=== PATIENT | male | born 1960 | race Caucasian/White ===

== ENCOUNTER 2020-11-12 11:59 | Outpatient (CLI) | payer OTHER, SELFPAY ==
--- NOTE | ~2020-11-12 | XR_ITS ---
EXAMINATION: XR chest 2V DATE: 11/12/2020 12:24 INDICATION: Respiratory tract congestion and cough, COVID 19 TECHNIQUE: Frontal and lateral views of the chest are obtained COMPARISON: None available FINDINGS: The lungs are free of acute opacities. There is no pleural effusion or pneumothorax. The ca rdiomediastinal silhouette is normal. There is moderate thoracic spondylosis. Spine stimulator leads project in the central spinal canal over the lower thoracic spine. IMPRESSION: 1. No acute cardiopulmonary abnormality. Reviewed, dictated and finalized at location [facility]. 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
== END 2020-11-12 12:00 | disposition home or self-care (01) ==
PROVIDERS: PCP Internal Medicine; Visit Provider Internal Medicine
DX: R05 Cough (principal)
CPT/HCPCS: 71046

== ENCOUNTER 2022-07-20 10:35 | Emergency (ER) | payer OTHER, SELFPAY ==
--- NOTE | ~2022-07-20 | CT_ITS ---
EXAMINATION: CT abdomen pelvis w con DATE: 07/20/2022 12:34 INDICATION: Abdominal pain, dysuria TECHNIQUE: Computed tomography (CT) of the abdomen and pelvis was performed with 100 CC Omnipaque 350 intravenous contrast. Automated exposure control and iterative reconstruction technique were employe d. Exam dose: 768.28 mGy-cm total exam DLP. COMPARISON: 04/07/2012 CT abdomen pelvis FINDINGS: The lung bases are clear of infiltrate or consolidation. Normal heart size. No pericardial or pleural effusion. 8.7 x 13.2 mm calcified stone in the dependent aspect of the gallbladder. No gallbladder wall thicken ing or pericholecystic fluid or fat stranding. No hepatic space-occupying mass lesion. Focal fat infi ltration adjacent to the fissure for the ligamentum teres. Borderline splenic size. No pancreatic mass lesion or calcification. No pancreatic or bile duct dilatation. Normal morphology of the adrenal glands. No renal mass lesion or urinary tract calculus or hydroureteronephrosis. There is prostate enlargemen t and moderate diffuse thickening of the urinary bladder wall likely secondary to the prostate hypert rophy. Small fat-containing left inguinal hernia. There is atherosclerotic calcification but normal caliber of the abdominal aorta. No intraperitoneal or retroperitoneal or pelvic mass lesion or adenopathy or ascites. There are sutures of the colon near the junction of the sigmoid and descending colon. There are numer ous colonic diverticula with involvement of left and right colon. No CT evidence of diverticulitis. Normal appendix. No bowel obstruction or intraperitoneal free air. Posterior thoracic spinal neurotransmitter leads L a generator device in the right lower back. No suspicious osteolytic or osteoblastic lesions. Diffuse idiopathic skeletal hyperostosis of the thoracic spine. Transitional lumbosacral vertebra. IMPRESSION: Prostate enlargement, generalized bladder wall thickening likely due to prostate hypertr ophy Borderline splenic size Cholelithiasis Diverticulosis of colon; no CT evidence of diverticulitis Normal appendix Small fat-containing umbilical hernia Reviewed, dictated and finalized at [facility]. Reviewed, dictated and finalized at [facility]. IMPRESSION: Prostate enlargement, generalized bladder wall thickening likely d ue to prostate hypertrophy Borderline splenic size Cholelithiasis Diverticulosis of colon; no CT evidence of diverticulitis Normal appendix Small fat-containing umbilical hernia
[2022-07-20 10:41] VITALS: BP 143/68; PULSE 93; RESP 16; TEMP 36.8; O2SAT 100
[2022-07-20 10:59] LABS: Appearance Urine Clear (Clear); Bilirubin Urine 1+ (Negative); Color Urine Yellow (Yellow); Glucose Urine UA 2+ mg/dL (Negative); Ketones Urine Negative (Negative); Leukocyte Esterase Ur Negative LEU/UL (Negative); Nitrate Urine Negative (Negative); Protein Urine Negative (Negative); Specific Grav Ur >= 1.030 (1.001-1.035); Urobilinogen Urine 0.2 mg/dL (<2.0); pH Urine 5.5 (5.0-9.0)
[2022-07-20 11:02] LABS: Mucus Urine Rare /lpf; RBC Urine 0-2 /hpf (0-2)
[2022-07-20 11:05] LABS: Add Urine Microscopic? YES; Blood Urine Trace-Intact (Negative)
[2022-07-20 11:20] LABS: Basophils Percent Auto 0.5 % (0.2-1.2); Eosinophils Absolute Auto 0.1 K/mm3 (0-0.3); Eosinophils Percent Auto 1.1 % (0-4.4); Hematocrit 39.3 % (42.0-52.0); Hemoglobin 12.9 g/dL (14.0-18.0); Immature Granulocyte Absolute 0.06 K/mm3 (0.00-0.031); Immature Granulocyte Percent A 0.9 % (0-0.5); Lymphocytes Absolute Auto 0.69 K/mm3 (0.9-3.2); Lymphocytes Percent Auto 10.6 % (18.3-44.2); Mean Corpuscular HGB Conc 32.8 g/dl (32-36); Mean Corpuscular Hemoglobin 29.5 pg (26-34); Mean Corpuscular Volume 89.7 fl (80-100); Mean Platelet Volume 9.9 fl (7.4-10.4); Monocytes Absolute Auto 0.4 K/mm3 (0.1-0.6); Monocytes Percent Auto 5.7 % (2.6-8.5); Neutrophils Absolute Auto 5.3 K/mm3 (1.3-6.7); Neutrophils Percent Auto 81.2 % (45.5-73.1); Platelet Count Result 125 k/mm3 (150-375); Red Blood Count 4.38 M/mm3 (4.6-6.20); Red Cell Distribution Width 13.2 % (11.5-14.5); White Blood Count 6.5 K/mm3 (4.5-10.0)
[2022-07-20 11:30] LABS: Alanine Aminotransferase 55 U/L (6-50); Albumin Level 3.9 g/dL (3.5-5.1); Alkaline Phosphatase 73 U/L (38-126); Anion Gap 12 mmol/L (8-16); Aspartate Amino Transferase 39 U/L (17-59); Bilirubin,Total 0.5 mg/dL (0.2-1.3); Blood Urea Nitrogen 19 mg/dL (9-20); Calcium 9.2 mg/dL (8.4-10.2); Carbon Dioxide 25 mmol/L (22-30); Chloride 104 mmol/L (98-107); Estimated CRCL calculation 65 ml/min; Estimated Glomerular Filt Rate > 60; Glucose 299 mg/dL (65-110); Lipase 105 U/L (23-300); Potassium 4.6 mmol/L (3.4-5.0); Sodium 141 mmol/L (137-145)
[2022-07-20] MEDS: SODIUM CHLORIDE 0.9% IV 1,000 ML 999 ML IV CONT (12:17)
[2022-07-20] MEDS: ONDANSETRON INJ 4 MG/2 ML VIAL IV PUSH (12:18)
[2022-07-20] MEDS: MORPHINE SULFATE (*CRX) 4 MG/ML INJ IV PUSH (12:18)
--- NOTE | 2022-07-20 12:20 | ED.GENADULT ---
HPI - General Adult General Chief complaint: Urogenital-Male Stated complaint: unable to urinate Time Seen by Provider: 07/20/22 12:01 Source: RN notes reviewed History of Present Illness HPI narrative: Patient presents emergency room from home for abdominal pain. Patient states has been having lower abdominal pain for the past 10 days the pain is located bilateral lower quadrant worse in the left described as aching in nature. States that it is associated with dysuria and he saw his PCP a week ago was placed on antibiotics for possible UTI but continues to have the symptoms. He denies any fevers or chills nausea vomiting diarrhea or any other symptoms states the pain will radiate around to the back at times Related Data Allergies Allergy/AdvReac Type Severity Reaction Status Date / Time No Known Allergies Allergy Verified 12/20/17 07:46 Review of Systems Review of Systems: Gen.: Denies fevers or chills ENT: Denies congestion Respiratory: Denies shortness of breath or cough CV: Denies chest pain or palpitations GI: Reports lower abdominal pain. Denies nausea, emesis or diarrhea see HPI Musculoskeletal: Denies back pain or muscle pain Neuro: Denies numbness, tingling, weakness or focal weakness Skin: Denies rash Except as documented, all other systems reviewed and negative [facility] Past Medical History Medical History (Updated 07/20/22 @ 13:27 by Hans Langston DO) Diabetes mellitus Hypertension Social History Social History (Updated 07/20/22 @ 12:21 by Hans Langston DO) Smoking status: Never smoker Exam Narrative: APPEARANCE: No acute distress, nontoxic, resting in bed HEENT: Normocephalic, atraumatic, OMM RESPIRATORY: No respiratory distress, clear to auscultation bilaterally with no rhonchi wheezing or rales CARDIOVASCULAR: RRR s murmur ABDOMINAL: Soft nondistended tender palpation right lower quadrant left lower quadrant no tenderness right upper quadrant left upper quadrant no rebound or guarding MUSCULOSKELETAl: Moves all extremities. No clubbing, cyanosis or edema. NEURO: Awake and alert. Following commands, speech normal, no focal deficits SKIN:: Warm, dry. Normal Color PSYCHIATRIC: Normal affect/mood Course Course Emergency Course: Reviewed old records patient with chronically low platelets Discussed with on-call physician for Dr. Mason agrees with plan for Flomax with referral to urology Patient states that they are feeling much better at this time. States abdominal pain has resolved. Repeat abdominal exam shows the patient's abdomen to be soft and nontender. Discussed with patient results of workup and diagnosis. Discussed need for follow-up with primary care physician, reasons to return to the emergency department in proper use of medication. Patient understands and agrees to current treatment plan Vital Signs Vital signs: Vital Signs Temperature 98.2 F 07/20/22 10:41 Pulse Rate 93 07/20/22 10:41 Respiratory Rate 16 07/20/22 10:41 Blood Pressure 143/68 H 07/20/22 10:41 Pulse Oximetry 100 07/20/22 10:41 Oxygen Delivery Room Air 07/20/22 10:41 Temperature 98.2 F 07/20/22 10:41 Pulse Rate 78 07/20/22 13:18 Respiratory Rate 18 07/20/22 13:18 Blood Pressure 132/72 07/20/22 13:18 Pulse Oximetry 99 07/20/22 13:18 Oxygen Delivery Room Air 07/20/22 10:41 Medical Decision Making MDM Narrative Medical decision making narrative: Patient presents for lower abdominal pain and difficulty urinating for the past several weeks. Was seen by his PCP last week put on Bactrim still continue have symptoms. On exam today white count was within normal limits patient's platelet count is low but is chronically low on review of old records UA shows no signs of infection a CT of the abdomen pelvis is negative no kidney stones no diverticulitis does show a thickened prostate and hypertrophy of the bladder and suspect patient has been having outlet obstruction w
[2022-07-20 13:18] VITALS: BP 132/72; PULSE 78; RESP 18; O2SAT 99
[2022-07-20] MEDS: TAMSULOSIN HCL 0.4 MG CAPSULE PO (13:29)
== END 2022-07-20 13:49 | disposition home or self-care (01) ==
PROVIDERS: Emergency Medicine; Emergency Provider Emergency Medicine; PCP Internal Medicine
DX: N40.0 Benign prostatic hyperplasia without lower urinary tract symptoms (principal); R10.32 Left lower quadrant pain; R10.31 Right lower quadrant pain; E11.9 Type 2 diabetes mellitus without complications; I10 Essential (primary) hypertension; K80.20 Calculus of gallbladder without cholecystitis without obstruction; K57.90 Diverticulosis of intestine, part unspecified, without perforation or abscess without bleeding; K42.9 Umbilical hernia without obstruction or gangrene
CPT/HCPCS: 36415; 74177; 80053; 81001; 83690; 85025; 96361; 96374; 96375; 99284; A9270; J2270; J2405; J7030; Q9967

== ENCOUNTER 2025-05-21 00:52 | Day surgery (SDC) | payer OTHER, SELFPAY ==
--- NOTE | 2025-05-10 11:40 | PC.NURSE ---
Addendum entered by Bee Santos RN 05/10/25 12:23: pt called back, states he would not have much time to talk but quickly went over med hx, printed off last scanned note from dr sanchez. pt states had not rec'd any prep instructions. instructions emailed and hard copy mailed. instructed pt to call back if any questions. voiced understanding. Original Note: attempted to call pt regarding his upcoming colonoscopy on May 21, 2025. pt states he works 12 hours 6 days a week with no break and he did not have time to talk. said nothing has changed and we should have all that. tried to explain last record was 2021, call was disconnected.
[2025-05-10 11:59] VITALS: BMI 25.7
--- OUTSIDE RECORDS SUMMARY | 2025-05-21 00:54 | XMS_ITS | Data Portability ---
Author Organization [place] [employer], Main Office Address [address] [place] [address] Assessment No assessment recorded. Plan of Treatment Reminders Order Date Submit Date Provider Last Modified By Organization Details Last Modified Time Details Appointments None recorded . Lab HbA1c (hemoglo bin A1c), blood 025 01/04/20 25 [facility] - Outpatient Lab, [address] [place], [address], 5 09:47:50 PSA, serum or plasma 025 01/04/20 25 [email or web address] [facility] Outpatient Lab, [address] [place], [address], 5 09:47:50 lipid panel, serum 025 01/04/20 25 [email or web address] [facility] Outpatient Lab, [address] [place], [address], 5 09:47:49 CMP, serum or plasma 025 01/04/20 25 [email or web address] [facility] Outpatient Lab, [address] [place], [address], 5 09:47:50 TSH, serum or plasma 025 01/04/20 25 [facility] Outpatient Lab, [address] [place], [address], 5 09:47:50 CBC w/ auto diff 025 01/04/[email or web address] [place] [address] Outpatient Lab, [address] [place], [address], 5 09:47:50 T4, free, serum 025 01/04/[id number] [place] [address] Outpatient Lab, [address] [place], [address], 5 09:47:50 HbA1c (hemoglo bin A1c), blood 024 05/31/[id number] [place] [address] Outpatient Lab, [address] [place], [address], 4 12:41:47 microalb umin, urine 024 05/31/[email or web address] [place] [address] Outpatient Lab, [address] [place], [address], 4 12:41:47 lipid panel, serum 024 05/31/[email or web address] [place] [address] Outpatient Lab, [address] [place], [address], 4 12:41:46 CMP, serum or plasma 024 05/31/[email or web address] [place] [address] Outpatient Lab, [address] [place], [address], 4 12:41:47 TSH, serum or plasma 024 05/31/[id number] [place] [address] Outpatient Lab, [address] [place], [address], 4 12:41:47 T4, free, serum 024 05/31/[id number] [place] [address] Outpatient Lab, [address] [place], [address], 4 12:41:47 CBC w/ auto diff 024 05/31/[id number] [place] [address] Outpatient Lab, [address] [place], [address], 4 12:41:46 HbA1c (hemoglo bin A1c), blood 024 11/11/[id number] Outpatient Lab, [address] [place], [address], 4 16:52:12 microalb umin/cre atinine, mass ratio, urine 024 11/11/[id number] Outpatient Lab, [address] [place], [address], 4 16:52:13 PSA, serum or plasma 023 05/13/[id number] Outpatient Lab, [address] [place], [address], 3 15:32:37 CBC w/ auto diff 023 05/13/[id number] Outpatient Lab, [address] [place], [address], 3 15:32:36 CMP, serum or plasma 023 05/13/[id number] Outpatient Lab, [address] [place], [address], 3 15:32:36 lipid panel, serum 023 05/13/[id number] Outpatient Lab, [address] [place], [address], 3 15:32:36 TSH, serum or plasma 023 05/13/[id number] Outpatient Lab, [address] [place], [address], 3 15:32:36 T4, free, serum 023 05/13/[id number] Outpatient Lab, [address] [place], [address], 3 15:32:37 Referral None recorded . Procedures None recorded . Surgeries None recorded . Imaging None recorded . Medication Orders None recorded . Patient TargetsNo targets recorded. Patient Instructions Encounter Date Encounter Id Patient Instructions Last Modified By Organization Details Last Modified Time 05/13/2023 [id number] Follow-up hypertension-hyperl ipidemia - type 2 diabetes. Will check blood work consisting of CBC, CMP, lipid, thyroid and PSA. Health overdue on a colonoscopy. Will check on this as well. Continue on current Rx and follow-up in six months [email or web address] Not available 05/13/2023 12:00:01 11/11/2023 [id number] Follow-up hypertension -hyperlipidemia- type 2 diabetes -testicular hypofunction all clinically stable. No interval complaints of any new problems. Will check blood work including a hemoglobin A1c and microalbumin. Recent blood work looked fine as far as cholesterol etc.. Does need a follow-up colonoscopy. Will continue on current Rx and follow-up in six months. Portions of the record may have been created with voice recognition software. Occasional wrong-word or [id number] substitutions may have occurred due to the inherent limitations of voice recognition software. Read the chart carefully and recognize, using context, where substitutions have occurred. Needs a colonoscopy follow-up [email or web address] Not available 11/11/2023 10:37:12 05/31/2024 [id number] Follow-up hypertension, hyperlipidemia, type 2 diabetes, testicular hypofunction hypogonadotropic, diverticulitis. Check blood work consisting of CBC, CMP, lipid, thyroid, hemoglobin A1c and microalbumin. Is in need of a follow-up colonoscopy. Continue on other medications the same way in follow-up in six months. Additional Orders and/or Directives: 1. Needs a follow-up colonoscopy Next Appointment: 6 Months Approximate Date: 11/27/2024 Portions of the record may have been created with voice recognition software. Occasional wrong-word or [id number] substitutions may have occurred due to the inherent limitations of voice recognition software. Read the chart carefully and recognize, using context, where substitutions have occurred. [email or web address] Not available 05/31/2024 10:35:51 01/03/2025 [id number] Follow-up essent ial hypertension, hyperlipidemia, testicular hypofunction type 2 diabetes. Check blood work consisting of CBC, CMP, lipid, thyroid, PSA and does need a follow-up colonoscopy. Is having problems with injections in the right buttocks. Does have a spinal cord stimulator in this area. Recommend that he see one of the pain management physician consider the possibility of removing this or moving it to another location. Clinically stable otherwise. Additional Orders - Directives - Recommendations 1. Needs a follow-up colonoscopy 2. Set up with pain management. The patient has a spinal cord stimulator in which he probably does not need any longer. Follow Up: 6 Months Approximate Date: 07/02/2025 Portions of record are template driven. When necessary additional context will be provided. Additionally some portions have been created with voice recognition software. Occasional wrong-word or [id number]-[id number] substitutions may have occurred due to the inherent limitations of voice recognition software. Read the chart carefully and recognize, using context, where substitutions may have occurred. Created: Khai Mason M.D. 01.03.2025 03:49 PM [email or web address] Not available 01/03/2025 16:49:55 Reason for Referral None Reported. Results Created Date Observation Date Name Description Value Unit Range Abnormal Flag Note LastModifiedBy Organization Detail LastModifiedTime 07/21/2007/22/2023 LIPID PANEL , STAND YANELI cholesterol, total 131 mg/dL <200 normal Not Available [employer] [address] [address] [place], [address], 07/22/2023 06:57:45 07/21/2007/22/2023 LIPID PANEL , STAND YANELI HDL cholesterol 40 mg/dL > or = 40 normal Not Available [employer] [facility] [address] [place], [address], 07/22/2023 06:57:45 07/21/20 23 07/22/2023 LIPID PANEL , STAND YANELI triglyceride s 71 mg/dL <150 normal Not Available [employer] [address] [address] [place], [address], 07/22/2023 06:57:45 07/21/2007/22/2023 LIPID PANEL , STAND YANELI LDL-choleste rol 76 mg/dL _(sergio c) normal Refer ence range : <100 Harley able range <100 mg/dL for prima ry preve ntion ; <70 mg/dL for patie nts with CHD or diabe tic patie nts with > or = 2 CHD risk facto rs. LDL-C is now calcu lated using the [facility] kins calcu chonfigueroa n, which is a valid ated novel metho d provi sarbjit tracy r accur acy than the [employer] equat ion in the estim ation of LDL-C . Vijaya n SS et al. JOAQUÍN. 2013; 310(1 9): 2061- 2068 (http ://ed ucati on.[employer]. [employer]/f aq/FA Q164) Not Available [employer] [facility] [address] [place], [address], 07/22/2023 06:57:45 07/21/20 23 07/22/2023 LIPID PANEL , STAND YANELI chol/HDLC ratio 3.3 (calc ) <5.0 normal Not Available [employer] [facility] [address] [place], [address], 07/22/2023 06:57:45 07/21/20 23 07/22/2023 LIPID PANEL , STAND YANELI non HDL cholesterol 91 mg/dL _(sergio c) <130 normal For patie nts with diabe angel plus 1 major ASCVD risk facto r, treat ing to a non-H DL-C goal of <100 mg/dL (LDL- C of <70 mg/dL ) is consi dered a thera peuti c optio n. Not Available [employer] [facility] [address] [place], [address], 07/22/2023 06:57:45 07/21/20 23 07/22/2023 COMPR EHENS SUN METAB OLIC PANEL glucose 249 mg/dL 65-99 high Fasti ng refer ence inter saqib For someo ne witho ut known diabe angel, a gluco se value >125 mg/dL indic ates that they may have diabe angel and this shoul d be confi rmed with a follo w-up test. Not Available [address], [address], 07/22/2023 06:57:46 07/21/20 23 07/22/2023 COMPR EHENS SUN METAB OLIC PANEL urea nitrogen (BUN) 11 mg/dL 7-25 normal Not Available [facility] [address], [address], 07/22/2023 06:57:46 07/21/20 23 07/22/2023 COMPR EHENS SUN METAB OLIC PANEL creatinine 1.16 mg/dL 0.70-1 .35 normal Not Available [address], [address], 07/22/2023 06:57:46 07/21/20 23 07/22/2023 COMPR EHENS SUN METAB OLIC PANEL eGFR 71 mL/mi n/1.7 3m2 > or = 60 normal Not Available [address], [address], 07/22/2023 06:57:46 07/21/20 23 07/22/2023 COMPR EHENS SUN METAB OLIC PANEL BUN/creatini ne ratio SEE NOTE: (calc ) 6-22 Not Repor harriett: BUN and Creat inine are withi n refer ence range . Not Available [address], [address], 07/22/2023 06:57:46 07/21/20 23 07/22/2023 COMPR EHENS SUN METAB OLIC PANEL sodium 137 mmol/ L 135-14 6 normal Not Available [address], [address], 07/22/2023 06:57:46 07/21/20 23 07/22/2023 COMPR EHENS SUN METAB OLIC PANEL potassium 4.3 mmol/ L 3.5-5. 3 normal Not Available [address], [address], 07/22/2023 06:57:46 07/21/20 23 07/22/2023 COMPR EHENS SUN METAB OLIC PANEL chloride 100 mmol/ L 98-110 normal Not Available [address], [address], 07/22/2023 06:57:46 07/21/20 23 07/22/2023 COMPR EHENS SUN METAB OLIC PANEL carbon dioxide 30 mmol/ L 20-32 normal Not Available [address], [address], 07/22/2023 06:57:46 07/21/20 23 07/22/2023 COMPR EHENS SUN METAB OLIC PANEL calcium 9.2 mg/dL 8.6-10 .3 normal Not Available [address], [address], 07/22/2023 06:57:46 07/21/20 23 07/22/2023 COMPR EHENS SUN METAB OLIC PANEL protein, total 6.6 g/dL 6.1-8. 1 normal Not Available [address], [address], 07/22/2023 06:57:46 07/21/20 23 07/22/2023 COMPR EHENS SUN METAB OLIC PANEL albumin 4.4 g/dL 3.6-5. 1 normal Not Available [address], [address], 07/22/2023 06:57:46 07/21/20 23 07/22/2023 COMPR EHENS SUN METAB OLIC PANEL globulin 2.2 g/dL_ (calc ) 1.9-3. 7 normal Not Available [address], [address], 07/22/2023 06:57:46 07/21/20 23 07/22/2023 COMPR EHENS SUN METAB OLIC PANEL albumin/glob ulin ratio 2.0 (calc ) 1.0-2. 5 normal Not Available [address], [address], 07/22/2023 06:57:46 07/21/20 23 07/22/2023 COMPR EHENS SUN METAB OLIC PANEL bilirubin, total 1.0 mg/dL 0.2-1. 2 normal Not Available [address], [address], 07/22/2023 06:57:46 07/21/20 23 07/22/2023 COMPR EHENS SUN METAB OLIC PANEL alkaline phosphatase 51 U/L 35-144 normal Not Available [address], [address], 07/22/2023 06:57:46 07/21/2007/22/2023 COMPR EHENS SUN METAB OLIC PANEL AST 13 U/L 10-35 normal Not Available [address], [address], 07/22/2023 06:57:46 07/21/20 23 07/22/2023 COMPR EHENS SUN METAB OLIC PANEL ALT 17 U/L 9-46 normal Not Available [address], [address], 07/22/2023 06:57:46 07/21/20 23 07/22/2023 CBC (INCL UDES DIFF/ PLT) white blood cell count 5.0 thous and/u L 3.8-10 .8 normal Not Available [address], [address], 07/22/2023 06:57:47 07/21/20 23 07/22/2023 CBC (INCL UDES DIFF/ PLT) red blood cell count 5.36 kendall on/uL 4.20-5 .80 normal Not Available [address], [address], 07/22/2023 06:57:47 07/21/20 23 07/22/2023 CBC (INCL UDES DIFF/ PLT) hemoglobin 15.1 g/dL 13.2-1 7.1 normal Not Available [address], [address], 07/22/2023 06:57:47 07/21/20 23 07/22/2023 CBC (INCL UDES DIFF/ PLT) hematocrit 45.9 % 38.5-5 0.0 normal Not Available [address], [address], 07/22/2023 06:57:47 07/21/20 23 07/22/2023 CBC (INCL UDES DIFF/ PLT) MCV 85.6 fL 80.0-1 00.0 normal Not Available [address], [address], 07/22/2023 06:57:47 07/21/20 23 07/22/2023 CBC (INCL UDES DIFF/ PLT) MCH 28.2 pg 27.0-3 3.0 normal Not Available [address], [address], 07/22/2023 06:57:47 07/21/20 23 07/22/2023 CBC (INCL UDES DIFF/ PLT) MCHC 32.9 g/dL 32.0-3 6.0 normal Not Available [address], [address], 07/22/2023 06:57:47 07/21/20 23 07/22/2023 CBC (INCL UDES DIFF/ PLT) RDW 14.5 % 11.0-1 5.0 normal Not Available [employer] [address], [address], 07/22/2023 06:57:47 07/21/20 23 07/22/2023 CBC (INCL UDES DIFF/ PLT) absolute neutrophils 4055 cells /uL 1500-7 800 normal Not Available [address], [address], 07/22/2023 06:57:47 07/21/20 23 07/22/2023 CBC (INCL UDES DIFF/ PLT) absolute lymphocytes 585 cells /uL 850-39 00 low Not Available [address], [address], 07/22/2023 06:57:47 07/21/20 23 07/22/2023 CBC (INCL UDES DIFF/ PLT) absolute monocytes 270 cells /uL 200-95 0 normal Not Available [address], [address], 07/22/2023 06:57:47 07/21/20 23 07/22/2023 CBC (INCL UDES DIFF/ PLT) absolute eosinophils 60 cells /uL 15-500 normal Not Available [address], [address], 07/22/2023 06:57:47 07/21/20 23 07/22/2023 CBC (INCL UDES DIFF/ PLT) absolute basophils 30 cells /uL 0-200 normal Not Available [address], [address], 07/22/2023 06:57:47 07/21/20 23 07/22/2023 CBC (INCL UDES DIFF/ PLT) neutrophils 81.1 % normal Not Available [address], [address], 07/22/2023 06:57:47 07/21/20 23 07/22/2023 CBC (INCL UDES DIFF/ PLT) lymphocytes 11.7 % normal Not Available [facility] [address], [address], 07/22/2023 06:57:47 07/21/20 23 07/22/2023 CBC (INCL UDES DIFF/ PLT) monocytes 5.4 % normal Not Available [address], [address], 07/22/2023 06:57:47 07/21/20 23 07/22/2023 CBC (INCL UDES DIFF/ PLT) eosinophils 1.2 % normal Not Available [address], [address], 07/22/2023 06:57:47 07/21/20 23 07/22/2023 CBC (INCL UDES DIFF/ PLT) basophils 0.6 % normal Not Available [address], [address], 07/22/2023 06:57:47 07/21/20 23 07/22/2023 CBC (INCL UDES DIFF/ PLT) comment(s) Revie w of perip heral smear confi jacob autom ated resul ts. Not Available [address], [address], 07/22/2023 06:57:47 07/21/20 23 07/22/2023 CBC (INCL UDES DIFF/ PLT) platelet count TNP TEST( S) NOT PERFO RMED: PLATE LET COUNT Unabl e to repor t due to signi fican t plate let clump ing. Plate let estim ate appea rs claudia l. Not Available [address], [address], 07/22/2023 06:57:47 07/21/20 23 07/22/2023 T4, FREE T4, free 1.2 NG/dL 0.8-1. 8 normal Not Available [address], [address], 07/22/2023 06:57:48 07/21/20 23 07/22/2023 TSH TSH 1.01 mIU/L 0.40-4 .50 normal Not Available [employer] [facility] [address] [place], [address], 07/22/2023 06:57:49 07/21/20 23 07/22/2023 PSA, TOTAL PSA, total 2.94 NG/mL < or = 4.00 normal The total PSA value from this assay syste m is stand ardiz ed again st the WHO stand yaneli. The test resul t will be appro ximat yannick 20% lower when robinson red to the equim olar- stand ardiz ed total PSA (Gonzalez man Coult er). Robinson rison of seria l PSA resul ts shoul d be inter prete d with this fact in mind. This test was perfo rmed using the Sag[employer] ns chemi lumin escen t metho d. Value s obtai eunice from diffe rent assay metho ds canno t be used inter squires eably . PSA level s, regar dless of value , shoul d not be inter prete d as absol makah evide nce of the prese nce or absen ce of disea se. Not Available [employer] [facility] [address] [place], [address], 07/22/2023 06:57:50 Result Notes None recorded. 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, [place] [address], [place], [address] , [facility] 3 11:58:44 Hyperglycemia 18254466 Active 2022 Leidy Shultz CMA null, [place] - [facility] 3 17:15:39 Internal hemorrhoids 70046844 Active 2023 Altagracia more, [facility] 4 12:13:57 Acute sinusitis 55135248 Active 2023 Khai Mason MD [address] [facility], [facility] [address], [place], [address] , [facility] 4 12:27:14 Male hypogonadism 50364419 Active 2024 WILFRED Yousif, [place] - [facility] 5 12:02:44 Injury of nerve at thigh level 008457233 Active 2024 Altagracia more, [facility] 5 13:13:10 Problem Notes None recorded. Medical Equipment None Reported. Medications Name Sig Start Date Stop Date Status Note LastModified by Organization Details LastModified Time Pravachol 40 mg tablet once daily active Not Available Not Available No t Available BD Luer-Hadley Syringe 3 mL 23 x 1 01/03 completed Not Available Not Available Not Available amoxicillin 500 mg capsule Take 1 capsule 3 times a day by oral route for 10 days. 07/24 completed Not Available Not Available Not Available clotrimazol e 10 mg isaac Dissolve in mouth 5 times daily 05/17 completed Not Available Not Available Not Available prednisone 10 mg tablet PLEASE SEE ATTACHED FOR DETAILED DIRECTION S 11/12 completed Not Available Not Available Not Available Glucophage 500 mg tablet one twice a day 03/03 completed Not Available Not Available Not Available azithromyci n 250 mg tablet TAKE 2 TABLETS BY MOUTH TODAY, THEN TAKE 1 TABLET DAILY FOR 4 DAYS 01/20 completed Not Available Not Available Not Available Lidocaine Viscous 2 % mucosal solution Take 15 mL every 3 hours by oral route. 07/24 completed Not Available Not Available Not Available benzonatate 200 mg capsule Take 1 capsule 3 times a day by oral route. active Not Available Not Available No t Available ampicillin 500 mg capsule TAKE 1 CAPSULE BY MOUTH FOUR TIMES A DAY UNTIL GONE 01/03 completed Not Available Not Available Not Available lisinopril 20 mg tablet TAKE 1 TABLET BY MOUTH EVERY DAY 2024 active Not Available Not Available Not Avai lable promethazin e 6.25 mg-codeine 10 mg/5 mL syrup Take 5 ML EVERY 6 HOURS by oral route PRN for cough active Not Available Not Available No t Available metronidazo le 500 mg tablet Take 1 tablet every 8 hours by oral route. 06/16 completed Not Available Not Available Not Available ciprofloxac in 500 mg tablet TAKE 1 TABLET BY MOUTH TWICE A DAY FOR 10 DAYS 10/02 completed Not Available Not Available Not Available Tamiflu 75 mg capsule Take 1 capsule every day by oral route for 10 days. 01/20 completed Not Available Not Available Not Available sulfamethox azole 800 mg-trimetho prim 160 mg tablet TAKE 1 TABLET BY MOUTH EVERY 12 HOURS 10/02 completed Not Available Not Available Not Available Tessalon Perles 100 mg capsule Take 1 capsule 3 times a day by oral route. active Not Available Not Available No t Available tamsulosin 0.4 mg capsule TAKE 1 CAPSULE BY MOUTH EVERY DAY active Not Available Not Available No t Available cephalexin 500 mg capsule TAKE 1 CAPSULE BY MOUTH FOUR TIMES A DAY UNTIL GONE 01/03 completed Not Available Not Available Not Available simvastatin 20 mg tablet TAKE 1 TABLET BY MOUTH EVERY DAY 2024 active Not Available Not Available Not Avai lable metformin 1,000 mg tablet TAKE 1 TABLET BY MOUTH TWICE A DAY 2024 active Not Available Not Available Not Avai lable tobramycin 0.3 % eye drops INSTILL 1 DROP INTO AFFECTED EYE(S) BY OPHTHALMI C ROUTE EVERY 4 HOURS active Not Available Not Available No t Available glimepiride 4 mg tablet TAKE 1 TABLET BY MOUTH TWICE A DAY 2024 active Not Available Not Available Not Avai lable indomethaci n 50 mg capsule Take 1 capsule 3 times a day by oral route with meals. active Not Available Not Available No t Available Amaryl 2 mg tablet Take 1 tablet twice a day by oral route. active Not Available Not Available No t Available Levaquin 500 mg tablet Take 1 tablet every 24 hours by oral route. 07/24 completed Not Available Not Available Not Available testosteron e cypionate 200 mg/mL intramuscul ar oil INJECT 1 MILLILITE R INTRAMUSC ULARLY WEEKLY 2024 active Not Available Not Available Not Avai lable zolpidem 10 mg tablet TAKE 1 TABLET BY MOUTH EVERYDAY AT BEDTIME 2024 active Not Available Not Available Not Avai lable methylpredn isolone 4 mg tablets in a dose pack TAKE 6 TABLETS ON DAY 1 DIRECTED ON PACKAGE AND DECREASE BY 1 TAB EACH DAY FOR A TOTAL OF 6 DAYS 11/12 completed Not Available Not Available Not Available ketoconazol e 2 % topical cream APPLY TO THE AFFECTED AREA(S) BY TOPICAL ROUTE ONCE DAILY 07/24 completed Not Available Not Available Not Available amoxicillin 875 mg-potassiu m clavulanate 125 mg tablet Take 1 tablet every 12 hours by oral route. 01/03 completed Not Available Not Available Not Available Mucinex 600 mg tablet, extended release Take 1 tablet every 12 hours by oral route. active Not Available Not Available No t Available tadalafil 5 mg tablet Take 1 tablet by mouth once daily 2024 active Not Available Not Available Not Yashira luque Vitals Date Recorded Body height Body mass index (BMI) Body weight Heart rate Body temperature Oxygen saturation Oxygen saturation in Arterial blood by Pulse oximetry Systolic And Diastolic Provider Name and Address Organization Details Last Updated DateTime 4 181.61 cm 29.7 kg/m2 56752.9 5 g 81 /min 97 [degF] 98 % 98 % 122/78 mm[Hg] Shauna Kline [facility] [employer] [facility] 4 10:30:41 Date Recorded Body mass index (BMI) Body height Oxygen saturation Oxygen saturation in Arterial blood by Pulse oximetry Heart rate Body temperature Body weight Systolic And Diastolic Provider Name and Address Organization Details Last Updated DateTime 3 30.3 kg/m2 181.61 cm 98 % 98 % 78 /min 97 [degF] 091254. 12 g 138/70 mm[Hg] Not Available [facility] 3 12:44:28 Date Recorded Body height Body mass index (BMI) Body weight Heart rate Body temperature Oxygen saturation Oxygen saturation in Arterial blood by Pulse oximetry Systolic And Diastolic Provider Name and Address Organization Details Last Updated DateTime 5 181.61 cm 28.3 kg/m2 61314.0 3 g 85 /min 97 [degF] 96 % 96 % 138/78 mm[Hg] Shauna Blanton [employer] 5 16:29:55 Date Recorded Body height Body mass index (BMI) Body weight Body temperature Heart rate Oxygen saturation Oxygen saturation in Arterial blood by Pulse oximetry Systolic And Diastolic Provider Name and Address Organization Details Last Updated DateTime 3 181.61 cm 30.5 kg/m2 605251. 51 g 96.9 [degF] 88 /min 98 % 98 % 138/76 mm[Hg] Sharmin Luna MA [employer] 3 11:37:27 Date Recorded Body height Body mass index (BMI) Body weight Heart rate Body temperature Oxygen saturation Oxygen saturation in Arterial blood by Pulse oximetry Systolic And Diastolic Provider Name and Address Organization Details Last Updated DateTime 4 181.61 cm 29.8 kg/m2 67008.5 4 g 95 /min 97.6 [degF] 98 % 98 % 140/70 mm[Hg] JOVI Price [employer] 4 10:16:26 Social History None recorded. Functional Status None recorded. Mental Status None recorded. Family History Nothing Reported Notes:Mother 84 and in good health. Father unknown health history. One brother and one sister both living and in good health. Medical History Condition Response NERVE DISEASE N BLINDNESS N RHEUMATIC FEVER N KIDNEY STONES N BLADDER PROBLEMS N MRSA N OTHER # 1 N POLIO N LUNG DISEASE/DISORDER N COPD N RADIATION / CHEMOTHERAPY N Other # 2 N BLOOD DISEASES N SURGERY N EAR OR HEARING PROBLEMS N MUMPS N DEPRESSION (INCLUDING POST ) N BOWEL PROBLEMS N STROKE/TIA N ULCERS N BENIGN PROSTATIC HYPERPLASIA N MEASLES N MYOCARDIAL INFARCTION N OBESITY N GERD/NAUSEA N ANEURYSM N URINARY/BLADDER/KIDNEY PROBLEMS N CORONARY ARTERY DISEASE (CAD) N ADDICTION CONCERNS N Impotence N ENDOMETRIOSIS N USE OF BLOOD THINNERS N SKIN PROBLEMS N GASTROINTESTINAL DISORDER Y PERIPHERAL VASCULAR DISEASE N MUSCLE,JOINT OR BONE PROBLEMS Y GASTROINTESTINAL BLEEDING N BLOOD CLOTS N ASTHMA N CATARACTS N ERECTILE DYSFUNCTION N VARICOSITIES N GI PROBLEMS N Low Testosterone N INFERTILITY N AIDS/HIV N CHEMOTHERAPY / RADIATION N LIVER DISEASE N MALE HYPOGONADISM Y HYPERTENSION Y Deficiency N ANXIETY DISORDER N BLOOD TRANSFUSION N ANEMIA/BLOOD DISORDER N CHRONIC EAR INFECTIONS N BRONCHITIS N TUBERCULOSIS N GLAUCOMA N FOOT PROBLEM N DIVERTICULITIS Y SLEEP APNEA N CHICKENPOX N INFECTIOUS DISEASE N PROSTATE N HEART ARRHYTHMIA N INSOMNIA N HIGH CHOLESTEROL / HYPERLIPIDEMIA Y EYE PROBLEMS N HYPERTHYROIDISM N NEUROLOGICAL PROBLEMS N EDEMA N CHRONIC PAIN SYNDROME N HYPOTHYROIDISM N CAROTID BLOCKAGE N CONSTIPATION N BACK / NECK PROBLEMS N HAVE YOU BEEN HOSPITALIZED OR SEEN IN THE MEDICAL CENTER IN THE PAST YEAR ? N ATHEROSCLEROSIS N BREAST PROBLEMS N DIALYSIS N ECZEMA N OSTEOPOROSIS N ARTHRITIS N NO SIGNIFICANT PAST MEDICAL HISTORY N APPENDICITIS N DIABETES, TYPE Y BAD TEETH N ENT N HEARTBURN / REFLUX N AUTISM SPECTRUM DISORDER (ASD) N HEPATITIS / LIVER DISEASE N GOUT N SLEEP DISORDER N ALZHEIMER'S DISEASE N Brain Problems N DEMENTIA N HERPES N SEIZURES/EPILEPSY N HEADACHES/MIGRAINES N VASCULAR DISEASE N PACEMAKER N Blood Disorder N DIZZINESS N HEART DISEASE/HEART PROBLEMS N KIDNEY DISEASE N MULTIPLE SCLEROSIS N CANCER: SPECIFY N CARDIAC ARRHYTHMIA N ATRIAL FIBRILLATION N Gall Stones N PULMONARY EMBOLISM N AUTOIMMUNE DISEASE N Immunizations Vaccine Type Date Status Note Provider Nam e and Address Organization Details Recorded Time COVID-19 Non-US Vaccine, Product Unknown 02/09/2021 completed Not Available [facility] 3 12:46:16 COVID-19 Non-US Vaccine, Product Unknown 01/14/2021 completed Not Available [facility] 3 12:46:16 Influenza, split virus, quadrivalent, PF 08/19/2018 completed Not Available [facility] 3 12:46:17 Past Encounters Encounter ID Performer Location Encounter Start Date Encounter Closed Date Diagnosis/Indication Diagnosis SNOMED-CT Code Diagnosis ICD10 Code Diagnosis Note [id number] Khai Mason MD [facility] Internal [facility] [place] [address] [facility] [address] [place] [address] 01/20/2021 00:00:00 01/20/2021 16:34:47 [id number] Khai Mason MD [facility] Internal Med [facility] [address] [address] 06/16/2021 00:00:00 06/16/2021 16:43:18 [id number] Khai Mason MD [facility] [facility] [place] [address] 05/12/2022 00:00:00 05/12/2022 16:50:13 [id number] Khai Mason MD [facility] Internal Med [facility] [address] [address] 11/12/2022 00:00:00 11/12/2022 11:46:13 [id number] Khai Mason MD [facility] [address] [address] 05/13/2023 11:12:59 05/13/2023 12:05:18 Essential hypertension 53684185 I10 Hypercholesterolemia 136 28922 E78.00 Type 2 jelly betes mellitus 70605085 E11.9 Disorder of prostate 302 74780 N42.9 [id number] Khai Mason MD [facility] [place] [place] Internal Med [address] [address] 11/11/2023 10:27:34 11/11/2023 10:42:54 Essential hypertension 07303241 I10 Hypercholesterolemia 136 06463 E78.00 Type 2 jelly betes mellitus 56208308 E11.9 Testicular hypofunction 903105277 E29.1 [id number] Khai Mason MD [facility] Internal Med [address] [address] 05/31/2024 10:12:58 05/31/2024 15:34:59 Essential hypertension 75482557 I10 Hypercholesterolemia 136 25001 E78.00 Type 2 jelly betes mellitus 74368516 E11.9 Testicular hypofunction 419457519 E29.1 Diverticul itis of colon 984543254 K57.32 [id number] Khai Mason MD [facility] Internal Med [address] [facility], [place] [address] [place] [address] 01/03/2025 16:03:11 01/03/2025 16:56:16 Essential hypertension 12987020 I10 Hypercholesterolemia 136 60691 E78.00 Testicular hypofunction 131903258 E29.1 Type 2 jelly betes mellitus 38893231 E11.9 Disorder of prostate 302 11238 N42.9 Health Concerns Section Related Observation LastModified by Organization Detai ls LastModified Time None Recorded Concern Status LastModified by Organization Details LastModified Time None Recorded Advance Directives Directive None Recorded Payers Insurance Date Sequence Insurance Name Policy Number Policy Cobian Covered Member ID Cobian Member ID Guarantor Name 01/03/2025 1 [employer] [id number] Silvano Ernestina Hickey [id number] Silvano Hickey Notes Date Note Type Note Provider Name and Address Organization Details Recorded Time 3 text/html Patient Name: Silvano HickeyDate Of Service: May ( 05.13.2023 ): 1960 Age: 62 Vital Signs:Blood Pressure: Sitting Rt. Arm 138/76Pulse: Sitting 88 /min and RegularRespirations: 12Height 71.5 in or 1.8 mWeight 222 lb or 100.7 kgBMI 30.5Temperature: 96.9 F or 36.1 CPulse Oximetry: 98 % at rest on no oxygen Chief Complaint: Addressed in HPI Problems or conditions discussed in the HPI were the only ones reviewed during the encounter.Only social and family history addressed in the HPI were reviewed during this encounter. Attendant(s): None Constitutional and Systemic Symptoms: none Medication Reconciliation: by patient. History of Present Illness #1. Essential Hypertension: Stage: Stage I Interval Neurological Complaints no headaches. No shortness of breath, orthopnea or cardiovascular symptoms. No other symptoms related to end organ damage. Pressure has been under excellent control. Currently normal. No other end organ symptoms or findings. Therapy reviewed regarding management of hypertension and includes salt restriction and Lisinopril. #2. Type II Hypercholesterolaemia: Currently taking medication and tolerating well. No interval complaints of any muscle pain or arthralgia. No significant liver changes with medications. Last lipid panel: fair control. Therapy reviewed regarding treatment of cholesterol management and include diet and Zocor. #3. Type II Diabetes: Has had no polyuria polyphagia or polydipsia. Has had no hypoglycemic like responses. No new history of any numbness, tingling, weakness or visual problems. No nausea, anorexia or other constitutional symptoms. There has been no foot problems or non healing lesions. The last HAIC was [facility] HAIC: 7.6 Calculated MB mg%. Average blood sugars 125-150 mg%. Checking sugars : infrequently Medication Types Include: Metformin and Sulfonylureas Secondary complications include none. Macro-vascular complications include none. Therapy reviewed regarding diabetic management and include Amaryl and Glucophage Compliance: good Renal Protection: ELVIS inhibitors Lipid management: statins Urinary microalbumin: A1 . Ophthalmological: has seen eye doctor within the last yearMedication List Reviewed and Reconciled 05/13/2023mbien 10 MG (TABLET - ORAL) One Daily At BedtimeTestosterone Cypionate 1 MlAspirin 81 MG One Daily For Vascular ProphylaxisGlucophage 1 GM (TABLET - ORAL) One Bid For DiabetesZocor 20 MG (TABLET - ORAL) One DailyAmaryl 4 MG (TABLET - ORAL) One Twice DailyLisinopril 20 MG One Daily For HtnVaccination and Ippixxuiopqe2085-41 Covid PfizerSurgical HistorySpinal Stimulator, Left Colon Resection Diverticulitis, Lt. Thigh SurgeryPreventative Testing Confirmed by Our Gkakrcb2605/20/2022 ALBUMIN 4.6 G/DL05/20/2022 PSA 0.75 NG/ML05/20/2022 MICRO ALBUMIN <0.2 MG/DL05/20/2022 HAIC 7.6 % OF TOTAL HGB H012/20/2017 COLONOSCOPY (5 YEARS) 12/20/2022Social HistoryDoes not smoke. Drinks socially. 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 Father unknown health history. Has one brother and one sister both living and in good health. Khai Mason MD [address] [place] [address], [facility] [address], [place], [address], [facility] [employer] 05/13/2023 12:00:50 4 text/html Patient Name: Silvano Janeteetee Of Service: November ( 11.11.2023 ): 1960 Age: 63 There has been approximately a 6 lb weight loss since 05/13/2023. This represents approximately a 2.7% change in weight. Weight change attributable to lifestyle changes. Vital Signs:Blood Pressure: Sitting Rt. Arm 122/78Pulse: Sitting 81 /min and RegularRespiratory Rate: 12Height 71.5 in or 1.8 mWeight 216 lb or 98.0 kgBMI 29.7Temperature: 97 F or 36.1 [facility] Calculated MB mg%Pulse Oximetry: 98 % at rest on no oxygen Chief Complaint: Addressed in HPI Problems or conditions discussed in the HPI were the only ones reviewed during the encounter.Only social and family history addressed in the HPI were reviewed during this encounter. Attendant(s): NoneConstitutional and Systemic Symptoms:none Medication Reconciliation: by patient. History of Present Illness #1. Essential Hypertension: Stage: Stage I Interval Neurological Complaints no headaches. No shortness of breath, orthopnea or cardiovascular symptoms. No other symptoms related to end organ damage. Pressure has been under fair control. Currently normal. No other end organ symptoms or findings. Therapy reviewed regarding management of hypertension and includes salt restriction and Lisinopril. #2. Type II Hypercholesterolaemia: Currently taking medication and tolerating well. No interval complaints of any muscle pain or arthralgia. No significant liver changes with medications. Last lipid panel: fair control. Therapy reviewed regarding treatment of cholesterol management and include diet and Zocor. #3. Type II Diabetes: Has had no polyuria polyphagia or polydipsia. Has had no hypoglycemic like responses. No new history of any numbness, tingling, weakness or visual problems. No nausea, anorexia or other constitutional symptoms. There has been no foot problems or non healing lesions. [facility] Calculated MB mg%. Average blood sugars 125-150 mg%. Checking sugars : infrequently Medication Types Include: Metformin and Sulfonylureas Secondary complications include none. Macro-vascular complications include none. Therapy reviewed regarding diabetic management and include Amaryl and Glucophage Compliance: good Renal Protection: ELVIS inhibitors Lipid management: statins Urinary microalbumin: A1 . Ophthalmological: has seen eye doctor within the last year #4. Testicular Hypofunction: Stable. Libido and energy levels are good. No significant problems with performing daily activities. Taking medication: testosterone injections. No other systemic complaints related to hypogonadism.Medication List Reviewed and Reconciled 11/11/2023mbien 10 MG (TABLET - ORAL) One Daily At BedtimeTestosterone Cypionate 1 MlAspirin 81 MG One Daily For Vascular ProphylaxisGlucophage 1 GM (TABLET - ORAL) One Bid For DiabetesZocor 20 MG (TABLET - ORAL) One DailyAmaryl 4 MG (TABLET - ORAL) One Twice DailyLisinopril 20 MG One Daily For HtnVaccination and Egxrskczictz9596-86 Covid [facility] HospitalS[facility] HistorySpinal Stimulator, Left Colon Resection Diverticulitis, Lt. Thigh SurgeryPreventative Testing Confirmed by Our Huhgyqw0007/21/2023 ALBUMIN 4.4 G/DL N007/21/2023 PSA 2.94 NG/ML N005/20/2022 MICRO ALBUMIN <0.2 MG/DL N005/20/2022 HAIC 7.6 % OF TOTAL HGB H012/20/2017 COLONOSCOPY (5 YEARS) 12/20/2022Social HistoryDoes not smoke. Drinks socially. 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 Father unknown health history. Has one brother and one sister both living and in good health. TEST RESULT RANGE UNITSLIPID PANEL, STANDARD Date: 07/21/2023HOLESTEROL, TOTAL 131 <200 MG/DLHDL CHOLESTEROL 40 > OR = 40 MG/DLTRIGLYCERIDES 71 <150 MG/DLLDL-CHOLESTEROL 76 MG/DL (CALC)COMPREHENSIVE METABOLIC PANEL Date: 07/21/2023SODIUM 137 135-146 MMOL/LPOTASSIUM 4.3 3.5-5.3 MMOL/LGLUCOSE 249 65-99 MG/DLUREA NITROGEN (BUN) 11 7-25 MG/DLCREATININE 1.16 0.70-1.35 MG/DLEGFR 71 > OR = 60 ML/MIN/1.33F0EHMYFLHGY, TOTAL 1.0 0.2-1.2 MG/DLALKALINE PHOSPHATASE 51 35-144 U/LAST 13 10-35 U/LALT 17 9-46 U/LPSA, TOTAL Date: 07/21/2023SA, TOTAL 2.94 < OR = 4.00 NG/MLT4, FREE Date: 07/21/2023T4, FREE 1.2 0.8-1.8 NG/DLTSH Date: 07/21/2023TSH 1.01 0.40-4.50 MIU/LCBC (INCLUDES DIFF/PLT) Date: 07/21/2023WHITE BLOOD CELL COUNT 5.0 3.8-10.8 THOUSAND/ULHEMOGLOBIN 15.1 13.2-17.1 G/DLHEMATOCRIT 45.9 38.5-50.0 %PLATELET COUNT TNP THOUSAND/UL Khai Mason MD [address] [facility], [facility] [address], [place], [address], [place] [facility] [employer] 11/11/2023 10:37:29 4 text/html Patient Name: Silvano Almanzar Of Service: Wednesday ( 05.31.2024 ): 1960 Age: 63 Vital Signs:Blood Pressure: Sitting Rt. Arm 140/70Pulse: Sitting 95 /min and RegularRespiratory Rate: 12Height 71.5 in or 1.8 mWeight 217 lb or 98.4 kgBMI 29.8Temperature: 97.6 F or 36.4 CPulse Oximetry: 98 % at rest on no oxygen Chief Complaint: Addressed in HPI Problems or conditions discussed in the HPI were the only ones reviewed during the encounter.Only social and family history addressed in the HPI were reviewed during this encounter. Attendant(s): NoneConstitutional and Systemic Symptoms:none Medication Reconciliation: from medication list. History of Present Illness #1. Essential Hypertension: Stage: Stage I Interval Neurological Complaints no headaches, dizziness, weakness, visual changes, ataxia, aphasia and apraxia. No shortness of breath, orthopnea or cardiovascular symptoms. No other symptoms related to end organ damage. Pressure has been under excellent control. Currently normal. No other end organ symptoms or findings. Therapy reviewed regarding management of hypertension and includes salt restriction and Lisinopril. #2. Type II Hypercholesterolaemia: Currently taking medication and tolerating well. No interval complaints of any muscle pain or arthralgia. No significant liver changes with medications. Last lipid panel: excellent control. Therapy reviewed regarding treatment of cholesterol management and include diet and Zocor. #3. Type II Diabetes: Has had no polyuria polyphagia or polydipsia. Has had no hypoglycemic like responses. No new history of any numbness, tingling, weakness or visual problems. No nausea, anorexia or other constitutional symptoms. There has been no foot problems or non healing lesions. [facility] Calculated MB mg%. Average blood sugars 100-115 mg%. Checking sugars : several times a week Medication Types Include: diet Secondary complications include none. Macro-vascular complications include none. Therapy reviewed regarding diabetic management and include Amaryl and Glucophage Compliance: good Renal Protection: ELVIS inhibitors Lipid management: statins Urinary microalbumin: A1 . Ophthalmological: has seen eye doctor within the last year #4. Testicular Hypofunction: Stable. Libido and energy levels are good. No significant problems with performing daily activities. Taking medication: testosterone injections. No other systemic complaints related to hypogonadism. #5. Hx of diverticulitis. No interval complaints of pain, fever, chills or other constitutional symptoms. There has been no change in bowel habits or frequency. No change in the caliber of the stool. Active Medication ListAmbien 10 MG (TABLET - ORAL) One Daily At BedtimeTestosterone Cypionate 1 MlAspirin 81 MG One Daily For Vascular ProphylaxisGlucophage 1 GM (TABLET - ORAL) One Bid For DiabetesZocor 20 MG (TABLET - ORAL) One DailyAmaryl 4 MG (TABLET - ORAL) One Twice DailyLisinopril 20 MG One Daily For Htn Vaccination and Ajumnmrhtrqd8330-12 Covid [facility] Dfqsvws0513-32 Spinal Bfihcrmkgn2411-77 Left Colon Resection Pwjtczvovgwkpa5057-71 Lt. 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 Family HistoryMother 84 and in good health.Father unknown health history.One brother and one sister both living and in good health. TEST RESULT RANGE UNITSCBC (INCLUDES DIFF/PLT) Date: 07/21/2023WHITE BLOOD CELL COUNT 5.0 3.8-10.8 THOUSAND/ULHEMOGLOBIN 15.1 13.2-17.1 G/DLHEMATOCRIT 45.9 38.5-50.0 %COMPREHENSIVE METABOLIC PANEL Date: 07/21/2023SODIUM 137 135-146 MMOL/LPOTASSIUM 4.3 3.5-5.3 MMOL/LGLUCOSE 249 65-99 MG/DLUREA NITROGEN (BUN) 11 7-25 MG/DLCREATININE 1.16 0.70-1.35 MG/DLEGFR 71 > OR = 60 ML/MIN/1.75I0TSMNNANWS, TOTAL 1.0 0.2-1.2 MG/DLALKALINE PHOSPHATASE 51 35-144 U/LAST 13 10-35 U/LALT 17 9-46 U/LLIPID PANEL, STANDARD Date: 3CHOLESTEROL, TOTAL 131 <200 MG/DLHDL CHOLESTEROL 40 > OR = 40 MG/DLTRIGLYCERIDES 71 <150 MG/DLLDL-CHOLESTEROL 76 MG/DL (CALC)PSA, TOTAL Date: 07/21/2023SA, TOTAL 2.94 < OR = 4.00 NG/MLT4, FREE Date: 07/21/2023T4, FREE 1.2 0.8-1.8 NG/DLTSH Date: 07/21/2023TSH 1.01 0.40-4.50 MIU/L Khai Mason MD [address] [facility], [facility] [address], [place], [address], [place] [facility] 05/31/2024 10:36:08 5 text/html Patient Name: Silvano Janeteetee Of Service: Wednesday ( 01.03.2025 ): 1960 Age: 64 There has been approximately a 11 lb weight loss since 05/31/2024. This represents approximately a 5.1% change in weight. Weight change attributable to lifestyle changes. Vital Signs:Blood Pressure: Sitting Rt. Arm 138/78Pulse: Sitting 85 /min and RegularRespiratory Rate: 16Height 71.5 in or 1.8 mWeight 206 lb or 93.4 kgBMI 28.3Temperature: 97 F or 36.1 CPulse Oximetry: 96 % at rest on no oxygen Chief Complaint: Addressed in HPI Problems or conditions discussed in the HPI were the only ones reviewed during the encounter.Only social and family history addressed in the HPI were reviewed during this encounter. Attendant(s): NoneConstitutional and Systemic Symptoms:none Medication Reconciliation: from medication list. History of Present Illness #1. Essential Hypertension: Stage: pre hypertension Interval Neurological Complaints no headaches, weakness, visual changes, ataxia, aphasia and apraxia. No shortness of breath, orthopnea or cardiovascular symptoms. No other symptoms related to end organ damage. Pressure has been under excellent control. Currently normal. No other end organ symptoms or findings. Therapy reviewed regarding management of hypertension and includes salt restriction and Lisinopril. #2. Type II Hypercholesterolaemia: Currently taking medication and tolerating well. No interval complaints of any muscle pain or arthralgia. No significant liver changes with medications. Last lipid panel: fair control. Therapy reviewed regarding treatment of cholesterol management and include diet and Zocor. #3. Testicular Hypofunction: Stable. Libido and energy levels are good. No significant problems with performing daily activities. Taking medication: testosterone injections. No other systemic complaints related to hypogonadism. #4. Type II Diabetes: Has had no polyuria polyphagia or polydipsia. Has had no hypoglycemic like responses. No new history of any numbness, tingling, weakness or visual problems. No nausea, anorexia or other constitutional symptoms. There has been no foot problems or non healing lesions. 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 CGM: No. Average blood sugars 125-150 mg%. Checking sugars : several times a week. Medication Types Include: Metformin and Sulfonylureas Secondary complications include none. Macro-vascular complications include none. Therapy reviewed regarding diabetic management and include Amaryl and Glucophage Compliance: good Renal Protection: ELVIS inhibitors Lipid management: statins Urinary microalbumin: A1 . Ophthalmological: has seen eye doctor within the last year. Control: No hemoglobin A1c done recently Active Medication ListAmbien 10 MG (TABLET - ORAL) One Daily At BedtimeTestosterone Cypionate 1 MlAspirin 81 MG One Daily For Vascular ProphylaxisGlucophage 1 GM (TABLET - ORAL) One Bid For DiabetesZocor 20 MG (TABLET - ORAL) One DailyAmaryl 4 MG (TABLET - ORAL) One Twice DailyLisinopril 20 MG One Daily For Htn Vaccination and Immunization(X) 2020- COVIntelen Surgical Itnmppc0259-65 Spinal Ufplcqtklb4142-87 Left Colon Resection Sewngahyalujzn9493-15 Lt. Thigh Surgery Preventative Testing( ) 07/21/2023 Albumin 4.4 G/DL N(X) 07/21/2023 PSA 2.94 NG/ML N 07/21/2024( ) 05/20/2022 Micro Albumin <0.2 MG/DL N( ) 05/20/2022 HAIC 7.6 % OF TOTAL HGB H(X) 12/20/2017 Colonoscopy (5 Years) 12/20/2022 Social HistoryDoes not smokeDrinks sociallyWorks as a coupon clerk. Family HistoryMother 84 and in good health.Father unknown health history.One brother and one sister both living and in good health. Khai Mason MD [address] [facility], [facility] [address], [place], [address], [place] [facility] [employer] 01/03/2025 16:50:10
--- OUTSIDE RECORDS SUMMARY | 2025-05-21 00:54 | XMS_ITS | Clinical Summary ---
Author Organization [facility] Address [address] [place] [address] Care Team Providers Care Rivet Heater Name Role Phone Khai Mason MD Primary Care Provider [phone] Social History Tobacco Use Types Packs/Day Years Used Date Smoking Tobacco: Never Assessed Sex and Gender Information Value Date Recorded Sex Assigned at Not on file Legal Sex Male 5:24 PM CDT Gender Identity Not on file Sexual Orientation Not on file Plan of Treatment Health Maintenance Due Date Last Done Comments Colorectal Cancer Screening Colonoscopy (10 Years) 1960 Annual Physical 1963 Hepatitis C 1978 DTaP, Tdap and Td Vaccines ( 1 - Tdap) 1979 Pneumococcal Vaccine: 50+ Ye ars (1 of 1 - PCV) 2010 Zoster Vaccines (1 of 2) 2010 COVID-19 Vaccine ( - 2023-2 5 season) 2024 RSV Immunization or 60+ Years (1 - 1-dose 75+ series) 2035 Meningococcal B Vaccine Aged Out No l onger eligible based on patient's age to complete this topic Meningococcal Vaccine Aged Out No chance anderson eligible based on patient's age to complete this topic RSV Immunizations Under 20 Months Aged Out No longer eligible based on patient's age to complete this topic Care Teams Rivet Heater Relationship Specialty Start Date End Date Khai Mason MD [address] [address] PCP - General 12/28/11
[2025-05-21 06:42] VITALS: BP 133/73; PULSE 87; RESP 18; TEMP 36.4; O2SAT 97; BMI 26.2
[2025-05-21] MEDS: LACTATED RINGERS 1,000 ML 150 ML IV CONT (07:02)
--- NOTE | 2025-05-21 07:30 | WPDANESEPPF ---
Anes - Initial Pre Proc Eval Procedure: Operation Date: 05/21/25 08:00 Proposed Procedures p Screening Colonoscopy - Jim Garza MD Date/Time: 05/21/25 07:30 Surgeon: Jim Garza MD Pre Op Diagnosis: neoplasm screening Patient Data Age: 64 Gender: M Height: 1.85 m Weight: 90.2 kg Last Vital Signs Temp 97.6 F 05/21/25 06:42 Pulse 87 05/21/25 06:42 Resp 18 05/21/25 06:42 BP 133/73 05/21/25 06:42 Pulse Ox 97 05/21/25 06:42 O2 Del Method Room Air 05/21/25 06:42 Allergies Allergy/AdvReac Type Severity Reaction Status Date / Time No Known Allergies Allergy Verified 05/21/25 06:48 Home Medications ?Medication ?Instructions ?Recorded ?Confirmed ?Type tamsulosin 0.4 mg capsule (Flomax) 0.4 mg PO DAILY #14 caps 07/20/22 05/21/25 Rx glimepiride 4 mg tablet 4 mg PO BID 05/10/25 05/21/25 History lisinopril 20 mg tablet 20 mg PO .qd 05/10/25 05/21/25 History metformin 1,000 mg tablet 1,000 mg PO BID 05/10/25 05/21/25 History simvastatin 20 mg tablet 20 mg PO QPM 05/10/25 05/21/25 History tadalafil 5 mg tablet 5 mg PO PRN sexual activity 05/10/25 History zolpidem 10 mg tablet 10 mg PO .qd 05/10/25 05/21/25 History Laboratory Tests 05/21/25 06:59 POC Capillary Glucose 93 mg/dl (65-105) Patient hx anesthesia problems: none Family hx anesthesia problems: none Results Review: All pre-operative results and documents have been reviewed as part of the pre-operative evaluation. [facility] Past Medical History Medical History (Updated 07/21/22 @ 00:00 by Elodia Carnes) Diabetes mellitus Hypertension Social History Social History (Updated 07/20/22 @ 12:21 by Hans Langston, DO) Smoking status: Never smoker Alcohol intake: current Alcohol use details: socially Living arrangements: alone Spiritual care concerns: No Anes - Eval Final PreProcedure Day of Procedure 05/21/25 07:30 Patient weight: normal Heart: regular rate and rhythm Lungs: clear to auscultation Airway: Mallampati scale class II Neurological: alert and oriented Last oral intake: >/= 8 hours ASA classification: III Emergent: no Anesthetic plan: proceed Anesthesia type and monitoring: general GIVS and standard monitoring Results Review: All pre-operative results and documents have been reviewed as part of the pre-operative evaluation. Informed Consent: The patient's anesthetic plan and its attendant risks and benefits were discussed with the patient/family/POA. Questions were solicited and answers provided to the satisfaction of the patient/family/POA.
--- NOTE | 2025-05-21 07:57 | PM.IMHP ---
H&P: HPI History of Present Illness Date/Time: 05/21/25 07:57 Chief Complaint: Screening colonoscopy Narrative: This is the patient's 2nd colonoscopy. There are no GI symptoms and there is no family history of colorectal cancer. Review of Systems Review of Systems: All systems reviewed & are unremarkable except as noted in HPI and below [facility] Past Medical History Medical History (Updated 05/21/25 @ 07:58 by Jim Garza MD) Diabetes mellitus Hypertension Social History Social History (Updated 07/20/22 @ 12:21 by Hans Langston, DO) Smoking status: Never smoker Alcohol intake: current Alcohol use details: socially Living arrangements: alone Spiritual care concerns: No Meds Home Medications and Allergies Home Medications ?Medication ?Instructions ?Recorded ?Confirmed ?Type tamsulosin 0.4 mg capsule (Flomax) 0.4 mg PO DAILY #14 caps 07/20/22 05/21/25 Rx glimepiride 4 mg tablet 4 mg PO BID 05/10/25 05/21/25 History lisinopril 20 mg tablet 20 mg PO .qd 05/10/25 05/21/25 History metformin 1,000 mg tablet 1,000 mg PO BID 05/10/25 05/21/25 History simvastatin 20 mg tablet 20 mg PO QPM 05/10/25 05/21/25 History tadalafil 5 mg tablet 5 mg PO PRN sexual activity 05/10/25 History zolpidem 10 mg tablet 10 mg PO .qd 05/10/25 05/21/25 History Allergies Allergy/AdvReac Type Severity Reaction Status Date / Time No Known Allergies Allergy Verified 05/21/25 06:48 Vital Signs Vital Signs - 24 hr 05/21/25 06:42 Temperature 97.6 F Pulse Rate 87 Respiratory Rate 18 Blood Pressure 133/73 Pulse Oximetry 97 Oxygen Delivery Room Air Exam Const: General: cooperative and healthy appearing Resp: Effort & Inspection: normal respiratory effort and able to speak in complete sentences Auscultation: clear to auscultation bilaterally Cardio: Rate: regular rate Rhythm: regular rhythm GI: Inspection: normal to inspection GI Palp: No No hepatosplenomegaly present Auscultation: normal bowel sounds Rectal Exam: deferred Skin: General skin exam: normal color Psych: Appearance: grossly normal Mental Status: mental status grossly normal Assessment and Plan Assessment and plan (1) Encounter for screening colonoscopy: Code(s): Z12.11 - Encounter for screening for malignant neoplasm of colon Status: Acute Assessment and Plan: The patient is deemed a good candidate for the procedure. Consent signed. Will proceed.
--- NOTE | 2025-05-21 08:23 | S_PTH ---
PATIENT: Silvano Hickey LOC: [facility] U#:[id number] AGE/SX: 64/M ROOM: RE05/21/[address]: Jim Garza MD : 1960 BED: DIS: 05/21/2025 SPEC #: [id number] RECD: 05/21/25 10:17 STATUS: IAIN REGarth #: [id number] TRINIDAD: 05/21/25 08:[address]: Jim Garza DEPT: [facility] Surgical RECD BY: Latrice Schmid ENTERED: 05/21/25 10:17 SP TYPE: Surgical OTHR DR: Khai Mason, Tissues: A - Colon Polypectomy Procedures: Hematoxylin and Eosin Stain Gross and Microscopic Level 4
[2025-05-21 08:24] VITALS: BP 106/61; PULSE 82; RESP 20; O2SAT 99
[2025-05-21 08:34] VITALS: BP 107/83; PULSE 77; RESP 18; O2SAT 100
[2025-05-21 08:43] VITALS: BP 109/67; PULSE 74; RESP 18; O2SAT 100
== END 2025-05-21 08:54 | disposition home or self-care (01) ==
PROVIDERS: PCP Internal Medicine; Referring Provider Internal Medicine; Visit Provider Internal Medicine Gastroenterology
PROC: 0DJD8ZZ Inspection of Lower Intestinal Tract, Via Natural or Artificial Opening Endoscopic (ICD-10-PCS; CPT 45378; principal; 2025-05-21 08:00)
DX: Z12.11 Encounter for screening for malignant neoplasm of colon (principal); D12.3 Benign neoplasm of transverse colon; K57.30 Diverticulosis of large intestine without perforation or abscess without bleeding; K64.8 Other hemorrhoids; E11.9 Type 2 diabetes mellitus without complications; I10 Essential (primary) hypertension
CPT/HCPCS: 45385; 82948; 88305; J2003; J2704; J7120